=== PATIENT | male | born 1945 | race Caucasian/White ===

== ENCOUNTER → 2016-04-07 | Outpatient (CLI) | payer BC ==
[~2016-04-07] MED LIST: ALFU10TA30 PO; ASPEC81 PO; FINA5TAB4 PO; GLC500 PO; INSUINJ12 SC; OMEG10007 PO; REPA1TAB42 PO
[2016-04-07 13:24] LABS: ESTIMATED AVERAGE GLUCOSE 217 mg/dl; HA1C FLAG Normal (Normal)
== END | disposition home or self-care (01) ==
LOC: C.LAB1850 12:16
PROVIDERS: ATTEND Nurse Practitioner Family
DX: E11.65 Type 2 diabetes mellitus with hyperglycemia (principal)

== ENCOUNTER → 2016-05-11 | Outpatient (CLI) | payer BC ==
[2016-05-11 12:29] LABS: ALT/SGPT 27 U/L (12-78); BLOOD UREA NITROGEN 22 mg/dl (7-18); BUN/CREATININE RATIO 22.4 (10-20); CALCIUM 8.9 mg/dl (8.5-10.1); CARBON DIOXIDE 27 mmol/L (21-32); CHLORIDE 105 mmol/L (98-107); CHOLESTEROL 127 mg/dl (0-200); CREATININE 0.98 mg/dl (0.60-1.40); GLUCOSE 98 mg/dl (70-99); POTASSIUM 4.4 mmol/L (3.5-5.1); SODIUM 141 mmol/L (136-145)
[2016-05-11 12:38] LABS: ALKALINE PHOSPHATASE 68 U/L (45-117); AST/SGOT 19 U/L (15-37); CHOLESTEROL/HDL RATIO 2.1; HDL CHOLESTEROL 60 mg/dl; LDL CHOLESTEROL CALCULATED 48 mg/dl; THYROID STIMULATING HORMONE 0.297 uIu/ml (0.300-4.500); TRIGLYCERIDES 94 mg/dl (0-150); VERY LOW DENSITY LIPOPROT CALC 19 mg/dl
[2016-05-11 12:55] LABS: ESTIMATED AVERAGE GLUCOSE 189 mg/dl; HA1C FLAG Normal (Normal)
== END | disposition home or self-care (01) ==
LOC: C.LAB 11:37
PROVIDERS: ATTEND Internal Medicine
DX: E11.9 Type 2 diabetes mellitus without complications (principal); E78.5 Hyperlipidemia, unspecified; I25.10 Atherosclerotic heart disease of native coronary artery without angina pectoris; E05.90 Thyrotoxicosis, unspecified without thyrotoxic crisis or storm

== ENCOUNTER → 2016-07-06 | Outpatient (CLI) | payer BC ==
[~2016-07-06] MED LIST changes: +ALFU10TA2 PO; -ALFU10TA30 PO; +REPA1TAB26 PO; -REPA1TAB42 PO
[2016-07-06 13:06] LABS: ESTIMATED AVERAGE GLUCOSE 157 mg/dl; HA1C FLAG Normal (Normal)
== END | disposition home or self-care (01) ==
LOC: C.LAB1850 09:34
PROVIDERS: ATTEND Internal Medicine Endocrinology, Diabetes & Metabolism
DX: E11.65 Type 2 diabetes mellitus with hyperglycemia (principal)

== ENCOUNTER → 2016-11-19 | Outpatient (CLI) | payer BC ==
[~2016-11-19] MED LIST changes: -ALFU10TA2 PO; +ALFU10TA30 PO; -REPA1TAB26 PO; +REPA1TAB42 PO
[2016-11-19 12:04] LABS: ESTIMATED AVERAGE GLUCOSE 183 mg/dl; HA1C FLAG Normal (Normal)
--- NOTE | 2016-11-26 14:35 | CODING QUERY MEDICAL NECESSITY ---
SUPPORTING DIAGNOSIS NEEDED A supporting diagnosis is required for the test/procedure performed on this patient in order for us to be reimbursed by the patient's insurance. Please provide a supporting diagnosis for the following test/procedure listed below next to the test name along with your signature. *If there is no additional diagnosis for this patient that would support the following test/procedure please document that below next to the test/procedure. Test(s)/Procedure(s) that require a supporting diagnosis: * HEMOGLOBIN A1C DIAGNOSIS: Provider Signature: Date: Thank you Keri Schaeffer [employer] Once completed, please kindly fax back to [phone] For questions please call [phone]
== END | disposition home or self-care (01) ==
LOC: C.LAB1850 09:50
PROVIDERS: ATTEND Nurse Practitioner Family
DX: N40.0 Benign prostatic hyperplasia without lower urinary tract symptoms (principal); E78.5 Hyperlipidemia, unspecified; E11.9 Type 2 diabetes mellitus without complications

== ENCOUNTER → 2017-06-28 | Outpatient (CLI) | payer BC ==
[~2017-06-28] MED LIST changes: +ALFU10TA2 PO; -ALFU10TA30 PO; +REPA1TAB26 PO; -REPA1TAB42 PO
--- NOTE | 2017-06-28 11:50 | DIAGNOSTIC IMAGING REPORT ---
TWO VIEW CHEST CLINICAL HISTORY: COPD. FINDINGS: PA and lateral chest radiographs are compared to study dated 12/25/2013. The PA view is degraded by patient rotation. The patient is status post midline sternotomy and aortic valve surgery. The heart is enlarged and there is atherosclerotic calcification of the thoracic aorta. Chronic interstitial thickening is similar to previous. There is mild left basilar atelectasis. No airspace consolidation or pleural effusion is identified. There is no pneumothorax. The skeletal structures are osteopenic. The bony thorax appears intact. Postoperative change is noted in the right humeral head. Cholecystectomy clips are seen in the right upper quadrant. IMPRESSION: Cardiomegaly with no acute cardiopulmonary abnormality. Electronically signed by: Manny Cordon M.D. 06/28/2017 11:49 AM Dictated Date/Time: 06/28/2017 11:46 AM
== END | disposition home or self-care (01) ==
LOC: C.RADBC 11:20
PROVIDERS: ATTEND Family Medicine Adult Medicine
DX: I51.7 Cardiomegaly (principal); J44.9 Chronic obstructive pulmonary disease, unspecified

== ENCOUNTER 2017-08-19 11:11 | Inpatient (IN) | payer BC, OTHER ==
[~2017-08-19] VITALS: Ht 180.3 cm; Wt 130.5 kg
[2017-08-19] VITALS (14 sets, daily range): BP systolic 112–165; BP diastolic 56–85; PULSE 84–98; TEMP 36.6–36.9; O2SAT 91–98; Ht 180.3 cm; Wt 130.5 kg
[2017-08-19] MEDS ORDERED: SODIUM CHLORIDE 0.9% 1000ML 1,000 ML IV STA (11:51)
--- NOTE | 2017-08-19 12:27 | DIAGNOSTIC IMAGING REPORT ---
CHEST 2 VIEWS ROUTINE CLINICAL HISTORY: Respiratory distress COMPARISON STUDY: 06/28/2017 FINDINGS: There are postsurgical changes of a midline sternotomy and aortic valve replacement. The heart is borderline enlarged. There is no failure. There is no focal pulmonary consolidation. There are no pleural effusions.[There is slight deviation of the upper thoracic trachea to the left of midline. This is likely secondary to a thyroid goiter. IMPRESSION: No active disease in the chest. Electronically signed by: Efrain Esquivel M.D. 08/19/2017 12:25 PM Dictated Date/Time: 08/19/2017 12:24 PM
[2017-08-19 12:44] LABS: PTT PATIENT 22.6 SECONDS (21.0-31.0)
[2017-08-19 12:54] LABS: HEMATOCRIT 24.7 % (42-52); HEMOGLOBIN 6.9 g/dL (14.0-18.0); MEAN CELL VOLUME 75.1 fL (80-100); MEAN CORPUSCULAR HGB CONC 27.9 g/dl (32-36); MEAN PLATELET VOLUME 9.5 fL (7.4-10.4); PLATELET COUNT 238 K/uL (130-400); RED CELL DISTRIBUTION WIDTH CV 16.9 % (11.5-14.5); RED CELL DISTRIBUTION WIDTH SD 46.8 fL (36.4-46.3)
[2017-08-19 12:57] LABS: BASO % 0.1 %; BASO ABS # 0.01 K/uL (0-0.2); EOS % 2.3 %; EOS ABS # 0.19 K/uL (0-0.5); IG# 0.02 K/uL (0.00-0.02); LYMPH % 15.8 %; LYMPH ABS # 1.28 K/uL (1.2-3.4); MONO % 6.8 %; MONO ABS # 0.55 K/uL (0.11-0.59); NEUT % 74.8 %; NEUT ABS # 6.05 K/uL (1.4-6.5)
[2017-08-19 13:01] LABS: ALBUMIN 3.1 gm/dl (3.4-5.0); CALCIUM 8.2 mg/dl (8.5-10.1); CKMB 2.1 ng/ml (0.5-3.6); CREATININE 1.29 mg/dl (0.60-1.40); POTASSIUM 4.4 mmol/L (3.5-5.1)
--- NOTE | 2017-08-19 13:05 | EMERGENCY ROOM VISIT NOTE ---
ED Visit Note First contact with patient: 11:31 The patient was seen and examined with Anderson Whipple PA-C. I agree with the history, physical and findings. Please see the note for disposition and details.
[2017-08-19] MEDS ORDERED: ALUMINUM/MAGNESIUM/SIMETH (MAALOX MAX) 30 ML UDC PO PRN (14:00)
[2017-08-19] MEDS ORDERED: ZOLPIDEM TARTRATE 5 MG TAB PO PRN ×2 (14:00)
[2017-08-19] MEDS ORDERED: POLYETHYLENE (MIRALAX) 17 GM PACK PO PRN (14:00)
[2017-08-19] MEDS ORDERED: CARBOHYDRATES FOR HYPOGLYCEMIA PO PRN ×3 (14:00→17:45)
[2017-08-19] MEDS ORDERED: DEXTROSE 50% 50 ML SYR IV PRN ×3 (14:00→17:45)
[2017-08-19] MEDS ORDERED: GLUCOSE 40% GEL 15 GM TUBE PO PRN ×3 (14:00→17:45)
[2017-08-19] MEDS ORDERED: ACETAMINOPHEN 325 MG TAB PO PRN (14:00)
[2017-08-19] MEDS ORDERED: GLUCOSE 10 TABS/TUBE PO PRN ×3 (14:00→17:45)
[2017-08-19] MEDS ORDERED: ONDANSETRON INJ 2 MG/ML 2 ML VIAL IV PRN (14:00)
[2017-08-19] MEDS ORDERED: MAGNESIUM HYDROXIDE SUSP 30 ML UDC PO PRN (14:00)
[2017-08-19] MEDS ORDERED: GLUCAGON FOR INJ 1 MG VIAL SQ PRN ×3 (14:00→17:45)
[2017-08-19] MEDS ORDERED: OPTIRAY 320 IV PRN (14:30)
--- NOTE | 2017-08-19 14:33 | History and Physical ---
History & Physical Date & Time of Service: August 19, 2017 at 14:22 Chief Complaint: Low Blood Count Primary Care Physician: Daron Durham M.D. History of Present Illness Source: patient, family 72-year-old man with past medical history of diabetes mellitus type 2 insulin requiring, CAD status post CABG and aortic valve replacement with tissue valve in 2013, BPH and obesity. Patient has been complaining of significant shortness of breath for the last few months, progressively getting worse. Patient has no primary care physician in [place] so they drove 2 weeks ago from [place] to here. Patient said that his shortness of breath is mainly exertional and started after he sustained a fall in [place] a few months ago. Patient went to his primary care physician who did a blood work that showed his hemoglobin is 6. He was sent to the ER for further evaluation and management. Patient stated that he does not have any igor bleeding, blood in stool, hematuria. In the ED Hemoccult blood in stool test was done and was positive Denies any alcohol Admits to remote smoking, quit smoking 20 years ago Past Medical/Surgical History Medical Problems: (1) Acute blood loss anemia (2) Acute Pancreatitis (3) Aortic Valve Disorder (4) Cardiomegaly (5) Chronic Cholecystitis (6) Enlarged Prostate Without Lower Urinary Tract Symptoms (7) Heart Valve Replac Nec (8) History Of Tobacco Use (9) Hyperplasia of prostate (10) Hypertension Nos (11) Hypothyroidism Nos (12) Obesity, Nos (13) Pneumonia, Organism Nos Surgical Problems: (1) Aortocoronary Bypass (2) History of aortic valve replacement Social History Smoking Status: Former Smoker Immunizations History of Influenza Vaccine: N/A History of Tetanus Vaccine?: No History of Pneumococcal: No History of Hepatitis B Vaccine: No Allergies Coded Allergies: No Known Allergies (Verified , NKA, 01/22/15) Home Medications Scheduled Alfuzosin Hcl (Uroxatral), 10 MG PO QPM Aspirin Enteric Coated (Ecotrin Or Generic *), 81 MG PO QAM Finasteride (Proscar), 5 MG PO QPM Fish Oil ([place]-3), 1 CAP PO PM Insulin Detmir (Levemir), 25 UNITS SC BID Metformin Hcl (Glucophage *), 1,000 MG PO BID Repaglinide (Prandin), 1 MG PO AC Review of Systems Review of system Constitutional: No fever / no chills / no sweats /positive for generalized weakness and fatigue Eyes: no blurring of vision / no eye pain / no discharge / no redness ENT: no hearing loss / no epistaxis /no swallowing problems Respiratory: no cough / no wheezing /positive for exertional shortness of breath / no hemoptysis Cardiovascular: no Chest pain / no lower extremity edema / no palpitation Abdomen: no pain / no nausea / no vomiting / no constipation Musculoskeletal: no joint pain / no muscle pain / no joint swelling Genitourinary: no dysuria / no incontinence / no urinary retention Neurologic: no focal weakness / no numbness/tingling / no ataxia Psychiatric: no depression symptoms / no anxiety / no insomnia Endocrine: no excessive thirst / no excessive urination Hematologic: no abnormal bleeding / no bruising / no LN swelling Skin: No rash / no pallor Physical Exam Vital Signs Date Time Temp Pulse Resp B/P (MAP) Pulse Ox O2 Delivery O2 Flow Rate FiO2 08/19/17 13:26 93 19 94 08/19/17 13:21 91 20 95 08/19/17 13:16 91 20 94 08/19/17 13:11 92 22 95 08/19/17 13:06 91 20 94 Room Air 08/19/17 13:01 91 18 128/61 94 08/19/17 12:56 91 12 95 08/19/17 12:51 91 24 94 08/19/17 12:46 90 20 94 08/19/17 12:45 149/70 08/19/17 12:45 93 08/19/17 12:20 84 20 98 Room Air 08/19/17 12:02 96 Room Air 08/19/17 11:12 36.7 103 24 119/62 96 Room Air Physical examination General patient appears to be comfortable, not in acute distress HEENT: Atraumatic , normocephalic /no jaundice /no pallor /anicteric /no dry mucous membrane /normal external ear inspection Neck: Supple /no swelling /central trach Heart: S1/S2 normal/regular rate and rhythm/no gallop /no rub /no murmur Lungs: Clear to auscultation bilaterally/normal chest with expansion/no rhonchi/ no rales/no wheezing/no use of accessory muscles of respiration Abdomen: Soft/nontender/no guarding/no rebound/no organomegaly/no pulsatile mass Musculoskeletal: No swelling/no edema/no tenderness/normal range of motion Neuro exam: Awake alert oriented 3/cranial nerves II through XII appear to be intact/sensation intact/moves all extremities/no abnormal movements Psychiatric evaluation: No depressed mood/normal affect Skin: No rash on exposed skin area/no erythema Extremity: Normal pulse/no pitting edema/no clubbing or cyanosis Endocrine/lymphatic: No obvious lymphadenopathy /no lymphedema Diagnostics Laboratory Results Results Past 24 Hours Test 08/19/17 12:12 Range/Units White Blood Count 8.10 4.8-10.8 K/uL Red Blood Count 3.29 4.7-6.1 M/uL Hemoglobin 6.9 14.0-18.0 g/dL Hematocrit 24.7 42-52 % Mean Corpuscular Volume 75.1 80-100 fL Mean Corpuscular Hemoglobin 21.0 25-34 pg Mean Corpuscular Hemoglobin Concent 27.9 32-36 g/dl Platelet Count 238 130-400 K/uL Mean Platelet Volume 9.5 7.4-10.4 fL Neutrophils (%) (Auto) 74.8 % Lymphocytes (%) (Auto) 15.8 % Monocytes (%) (Auto) 6.8 % Eosinophils (%) (Auto) 2.3 % Basophils (%) (Auto) 0.1 % Neutrophils # (Auto) 6.05 1.4-6.5 K/uL Lymphocytes # (Auto) 1.28 1.2-3.4 K/uL Monocytes # (Auto) 0.55 0.11-0.59 K/uL Eosinophils # (Auto) 0.19 0-0.5 K/uL Basophils # (Auto) 0.01 0-0.2 K/uL RDW Standard Deviation 46.8 36.4-46.3 fL RDW Coefficient of Variation 16.9 11.5-14.5 % Immature Granulocyte % (Auto) 0.2 % Immature Granulocyte # (Auto) 0.02 0.00-0.02 K/uL Hypochromasia PRESENT Poikilocytosis PRESENT Microcytosis PRESENT Prothrombin Time 10.0 9.0-12.0 SECONDS Prothromb Time International Ratio 1.0 0.9-1.1 Activated Partial Thromboplast Time 22.6 21.0-31.0 SECONDS Partial Thromboplastin Ratio 0.9 D-Dimer 1230 0-500 ug/L FEU Sodium Level 136 136-145 mmol/L Potassium Level 4.4 3.5-5.1 mmol/L Chloride Level 103 98-107 mmol/L Carbon Dioxide Level 29 21-32 mmol/L Anion Gap 5.0 3-11 mmol/L Blood Urea Nitrogen 21 7-18 mg/dl Creatinine 1.29 0.60-1.40 mg/dl Est Creatinine Clear Calc Drug Dose 69.4 ml/min Estimated GFR () 62.9 Estimated GFR (Non- 54.3 BUN/Creatinine Ratio 16.4 10-20 Random Glucose 272 70-99 mg/dl Calcium Level 8.2 8.5-10.1 mg/dl Total Bilirubin 0.4 0.2-1 mg/dl Aspartate Amino Transf (AST/SGOT) 16 15-37 U/L Alanine Aminotransferase (ALT/SGPT) 24 12-78 U/L Alkaline Phosphatase 98 45-117 U/L Total Creatine Kinase 180 39-308 U/L Creatine Kinase MB 2.1 0.5-3.6 ng/ml Creatine Kinase MB Ratio 1.2 0-3.0 Troponin I 0.119 0-0.045 ng/ml Total Protein 7.0 6.4-8.2 gm/dl Albumin 3.1 3.4-5.0 gm/dl Globulin 3.9 2.5-4.0 gm/dl Albumin/Globulin Ratio 0.8 0.9-2 Diagnostic Radiology CHEST 2 VIEWS ROUTINE CLINICAL HISTORY: Respiratory distress COMPARISON STUDY: 06/28/2017 FINDINGS: There are postsurgical changes of a midline sternotomy and aortic valve replacement. The heart is borderline enlarged. There is no failure. There is no focal pulmonary consolidation. There are no pleural effusions.[There is slight deviation of the upper thoracic trachea to the left of midline. This is likely secondary to a thyroid goiter. IMPRESSION: No active disease in the chest. Electronically signed by: Efrain Esquivel M.D. 08/19/2017 12:25 PM Dictated Date/Time: 08/19/2017 12:24 PM The status Impression Assessment and Plan 72-year-old man with past medical history of CAD status post CABG, aortic valve disease status post tissue valve replacement in 2013, diabetes mellitus insulin requiring, morbid obesity and BPH. Presented to the hospital with exertional shortness of breath secondary to severe anemia. Assessment/plan Exertional shortness of breath Likely secondary to acute on chronic anemia plus mild COPD exacerbation Due to recent travel from [place] and the positive d-dimer, will order CT angiogram and lower extremity ultrasound to rule out any PE or DVT History of CABG/aortic valve replacement Currently will hold aspirin due to severe anemia Severe anemia, likely acute on chronic Positive occult blood in stool, Ordered 2 units blood transfusion Ordered rest of anemia study, including B12, folate levels Ordered iron study Consulted GI for initial workup, colonoscopy and upper EGD can be done as an outpatient Very mild/subtle COPD exacerbation DuoNeb as needed Hold off steroids at this point, my sense he will improve after the blood transfusion and the bronchodilators Can follow-up with electrical electronics technician as an outpatient Positive troponin, with EKG changes Likely demand ischemia, will trend troponin If continues to rise patient will need cardiology evaluation Troponin level improves, patient can follow-up with meat stringer as an outpatient Continue home meds as appropriate except aspirin Diabetes mellitus type 2 Continue insulin dose that patient takes at home Sliding scale insulin SCD boots for DVT prophylaxis Resuscitation Status VTE Prophylaxis Will order VTE Prophylaxis: Yes
[2017-08-19] MEDS ORDERED: ASPI81TA28 PO (14:39)
[2017-08-19] MEDS ORDERED: NVLGI/PEN SQ ×3 (14:39)
[2017-08-19] MEDS ORDERED: ATOR-26 PO (14:39)
[2017-08-19] MEDS ORDERED: NVLGIPEN SQ (14:39)
[2017-08-19] MEDS ORDERED: METF500T5 PO (14:39)
[2017-08-19] MEDS ORDERED: INSU1.2I SQ (14:39)
[2017-08-19] MEDS ORDERED: PRS5 PO (14:39)
[2017-08-19 15:29] LABS: RETIC COUNT % 2.3 % (0.5-2.0)
[2017-08-19] MEDS ORDERED: SODIUM CHLORIDE 0.9% 1000ML 1,000 ML IV SCH (15:30)
[2017-08-19] MEDS: ALBUT/IPRATROP 3MG/0.5MG NEB 3 ML VIAL INH SCH ×2 (15:55→19:08)
--- NOTE | 2017-08-19 16:30 | DIAGNOSTIC IMAGING REPORT ---
BILATERAL LOWER EXTREMITY VENOUS DOPPLER CLINICAL HISTORY: Shortness of breath. Foot pain. COMPARISON STUDY: No previous studies for comparison. TECHNIQUE: Sonography of the deep venous system of the bilateral lower extremities was performed. Compression and augmentation were evaluated. FINDINGS: The bilateral common femoral, superficial femoral and popliteal veins were compressible. Augmentation was normal. Flow was shown within the deep calf vessels. IMPRESSION: No evidence of deep venous thrombus within the bilateral lower extremities. Electronically signed by: Barry Watkins M.D. 08/19/2017 4:28 PM Dictated Date/Time: 08/19/2017 4:28 PM
--- NOTE | 2017-08-19 16:41 | EMERGENCY ROOM VISIT NOTE ---
History First contact with patient: 11:31 Chief Complaint: OTHER COMPLAINT Stated Complaint: LOW BLOOD COUNT History of Present Illness The patient is a 72 year old male who presents to the Emergency Room at the request of his PCP for a low blood count. The patient reports that he had labs ordered this morning. He received a phone call from Dr. Durham's office to come to the emergency department for further workup. The patient denies any recent symptoms including weakness, palpitations, chest pain, nausea, headache or urinary symptoms. The patient reports that he has had some shortness of breath since April as well. Patient has a history of aortic valve replacement in August 2013 at [facility]. The patient also reports that he had a loose stool this morning. He did not notice any blood in his stool recently, and denies any melena. The patient denies any prior history of anemia, and denies any current pain. The patient is not on any blood thinners. Review of Systems HEENT: Denies dizziness, visual problems, hearing loss, tinnitus. Denies difficulty swallowing or oral lesions. PULMONARY: Denies cough, sputum production or hemoptysis. CARDIOVASCULAR: Denies chest pain, palpitations, dyspnea on exertion, orthopnea or peripheral edema. GASTROINTESTINAL: Denies chronic diarrhea, constipation, nausea, vomiting, or abdominal pain. GENITOURINARY: Denies dysuria, frequency, urgency or nocturia. NEUROLOGIC: Denies history of epilepsy, CVA, TIA or chronic headaches. MUSCULOSKELETAL: Denies history of joint tenderness/swelling. SKIN: Denies rashes or lesions. PSYCHIATRIC: Denies history of depression or mental illness. ENDOCRINE: History of diabetes. Denies thyroid disorders. Past Medical/Surgical History Medical Problems: (1) Acute blood loss anemia (2) Acute Pancreatitis (3) Aortic Valve Disorder (4) Cardiomegaly (5) Chronic Cholecystitis (6) Enlarged Prostate Without Lower Urinary Tract Symptoms (7) Heart Valve Replac Nec (8) History Of Tobacco Use (9) Hyperplasia of prostate (10) Hypertension Nos (11) Hypothyroidism Nos (12) Obesity, Nos (13) Pneumonia, Organism Nos Surgical Problems: (1) Aortocoronary Bypass (2) History of aortic valve replacement Social History Smoking Status: Former Smoker Alcohol Use: none Marital Status: Occupation Status: retired Current/Historical Medications Scheduled Alfuzosin Hcl (Uroxatral), 10 MG PO QPM Aspirin (Aspirin Ec), 81 MG PO DAILY Atorvastatin (Lipitor), 80 MG PO DAILY Finasteride (Finasteride), 5 MG PO DAILY Fish Oil ([place]-3), 1 CAP PO PM Insulin Aspart (Novolog Flexpen), 15 UNITS SQ QDB Insulin Aspart (Novolog Flexpen), 15 UNITS SQ QDL Insulin Aspart (Novolog Flexpen), 25 UNITS SQ QDD Insulin Glargine ([place]jeo Solostar), 80 UNITS SQ HS Metformin Hcl Er (Glucophage Er), 1,000 MG PO BID Repaglinide (Prandin), 1 MG PO AC Scheduled PRN Insulin Aspart (Novolog Flexpen), 5 UNITS SQ WITH SNACKS PRN for WITH SNACKS Physical Exam Vital Signs Date Time Temp Pulse Resp B/P (MAP) Pulse Ox O2 Delivery O2 Flow Rate FiO2 08/19/17 13:26 93 19 94 08/19/17 13:21 91 20 95 08/19/17 13:16 91 20 94 08/19/17 13:11 92 22 95 08/19/17 13:06 91 20 94 Room Air 08/19/17 13:01 91 18 128/61 94 08/19/17 12:56 91 12 95 08/19/17 12:51 91 24 94 08/19/17 12:46 90 20 94 08/19/17 12:45 149/70 08/19/17 12:45 93 08/19/17 12:20 84 20 98 Room Air 08/19/17 12:02 96 Room Air 08/19/17 11:12 36.7 103 24 119/62 96 Room Air Physical Exam CONSTITUTIONAL: Obese male, alert and oriented X 3 with positive affect. Patient does not appear in any acute distress. HEENT: Normocephalic, atraumatic. Pupils equal, round and reactive. Ears and nares are clear. Conjunctivae are pale. OROPHARYNX: No tonsillar hypertrophy or posterior pharyngeal erythema. NECK: Full active range of motion without discomfort. No JVD or carotid bruits. RESPIRATORY: Clear to auscultation bilaterally with no wheezing, crackles, rhonchi or stridor. CARDIOVASCULAR: Regular rate and rhythm with no rubs or gallops. A grade 2 out of 6 systolic ejection murmur is best heard at the left upper sternal border. GASTROINTESTINAL: Bowel sounds present in all quadrants. Abdomen is protuberant but soft and nontender to palpation. MUSCULOSKELETAL: Full range of motion of all joints without discomfort. INTEGUMENTARY: No rash or other significant dermatologic conditions noted. HEMATOLOGIC: No ecchymosis or petechiae noted. NEUROLOGIC: No focal neurologic deficits noted. Medical Decision & Procedures ER Provider Diagnostic Interpretation: My interpretation of an ECG shows a sinus rhythm of [address] depression in inferior leads. No ST elevation noted. ECG was reviewed with Dr. Dixon, ED attending physician. My interpretation of a two-view chest x-ray does not show any consolidations, pneumothorax or cardiomegaly. Radiologist report is as follows: CHEST 2 VIEWS ROUTINE CLINICAL HISTORY: Respiratory distress COMPARISON STUDY: 06/28/2017 FINDINGS: There are postsurgical changes of a midline sternotomy and aortic valve replacement. The heart is borderline enlarged. There is no failure. There is no focal pulmonary consolidation. There are no pleural effusions.[There is slight deviation of the upper thoracic trachea to the left of midline. This is likely secondary to a thyroid goiter. IMPRESSION: No active disease in the chest. Laboratory Results 08/19/17 12:12 Red Blood Count 3.29, Mean Corpuscular Volume 75.1, Mean Corpuscular Hemoglobin 21.0, Mean Corpuscular Hemoglobin Concent 27.9, Mean Platelet Volume 9.5, Neutrophils (%) (Auto) 74.8, Lymphocytes (%) (Auto) 15.8, Monocytes (%) (Auto) 6.8, Eosinophils (%) (Auto) 2.3, Basophils (%) (Auto) 0.1, Neutrophils # (Auto) 6.05, Lymphocytes # (Auto) 1.28, Monocytes # (Auto) 0.55, Eosinophils # (Auto) 0.19, Basophils # (Auto) 0.01 08/19/17 12:12 Test 08/19/17 12:12 White Blood Count 8.10 K/uL (4.8-10.8) Red Blood Count 3.29 M/uL (4.7-6.1) Hemoglobin 6.9 g/dL (14.0-18.0) Hematocrit 24.7 % (42-52) Mean Corpuscular Volume 75.1 fL (80-100) Mean Corpuscular Hemoglobin 21.0 pg (25-34) Mean Corpuscular Hemoglobin Concent 27.9 g/dl (32-36) Platelet Count 238 K/uL (130-400) Mean Platelet Volume 9.5 fL (7.4-10.4) Neutrophils (%) (Auto) 74.8 % Lymphocytes (%) (Auto) 15.8 % Monocytes (%) (Auto) 6.8 % Eosinophils (%) (Auto) 2.3 % Basophils (%) (Auto) 0.1 % Neutrophils # (Auto) 6.05 K/uL (1.4-6.5) Lymphocytes # (Auto) 1.28 K/uL (1.2-3.4) Monocytes # (Auto) 0.55 K/uL (0.11-0.59) Eosinophils # (Auto) 0.19 K/uL (0-0.5) Basophils # (Auto) 0.01 K/uL (0-0.2) RDW Standard Deviation 46.8 fL (36.4-46.3) RDW Coefficient of Variation 16.9 % (11.5-14.5) Immature Granulocyte % (Auto) 0.2 % Immature Granulocyte # (Auto) 0.02 K/uL (0.00-0.02) Hypochromasia PRESENT Poikilocytosis PRESENT Microcytosis PRESENT Absolute Reticulocyte Count 0.08 10^6/uL (0.02-0.10) Percent Reticulocyte Count 2.3 % (0.5-2.0) Prothrombin Time 10.0 SECONDS (9.0-12.0) Prothromb Time International Ratio 1.0 (0.9-1.1) Activated Partial Thromboplast Time 22.6 SECONDS (21.0-31.0) Partial Thromboplastin Ratio 0.9 D-Dimer 1230 ug/L FEU (0-500) Anion Gap 5.0 mmol/L (3-11) Est Creatinine Clear Calc Drug Dose 69.4 ml/min Estimated GFR () 62.9 Estimated GFR (Non- 54.3 BUN/Creatinine Ratio 16.4 (10-20) Calcium Level 8.2 mg/dl (8.5-10.1) Total Bilirubin 0.4 mg/dl (0.2-1) Aspartate Amino Transf (AST/SGOT) 16 U/L (15-37) Alanine Aminotransferase (ALT/SGPT) 24 U/L (12-78) Alkaline Phosphatase 98 U/L (45-117) Total Creatine Kinase 180 U/L (39-308) Creatine Kinase MB 2.1 ng/ml (0.5-3.6) Creatine Kinase MB Ratio 1.2 (0-3.0) Troponin I 0.119 ng/ml (0-0.045) Total Protein 7.0 gm/dl (6.4-8.2) Albumin 3.1 gm/dl (3.4-5.0) Globulin 3.9 gm/dl (2.5-4.0) Albumin/Globulin Ratio 0.8 (0.9-2) The above labs were reviewed, confirming lab results from earlier. Patient also has of elevated troponin of 0.119. Medications Administered Medications (Trade) Dose Ordered Sig/Perfecto Route Start Time Stop Time Status Last Admin Dose Admin Sodium Chloride 1,000 ml @ 999 mls/hr Q1H1M STAT IV 08/19/17 11:51 08/19/17 12:51 DC 08/19/17 12:41 999 MLS/HR ED Course Patient history and physical exam were performed. Nurse's notes were reviewed. Vital signs were reviewed. Patient is mildly tachycardic at 103 bpm. O2 saturation is 96% on room air, and the patient he is normotensive and afebrile. I did review laboratory results from this morning, showing a hemoglobin of 6.8 and hematocrit of 23.7. D-dimer is elevated at 1320. Creatinine is normal 1.09. BNP is also normal. I did discuss my concern for the patient's current hemoglobin level. I did suggest that we repeat labs to make certain that the lab results are indeed correct. IV access was established, and labs were drawn. An ECG shows depressed ST segments in limb leads. A two-view chest x-ray was normal. Stool Hemoccult was positive. Review of repeat labs confirms a hemoglobin of 6.9. D- dimer is still elevated. Type and cross for 2 units of packed red blood cells was ordered. He is also noted that the patient's troponin is elevated. Patient was also examined by Dr. Dixon, ED attending physician, who agrees with workup and plan of care. The case was further discussed with the [facility] physicians group hospitalist service. They will order for the blood transfusions and probable chest CTA. Please see the dictation for further treatment and final disposition. Medical Decision Patient presents to the emergency department for evaluation of a low hemoglobin level on lab this morning. Labs were confirmed today. The patient does have a positive Hemoccult test, suggestive of GI bleed. Patient also has an elevated troponin, and will need further cardiac rule out. Creatinine is normal and not suggestive of renal injury. Medication Reconcilliation Current Medication List: was personally reviewed by me Blood Pressure Screening Patient's blood pressure: Normal blood pressure Impression Primary Impression: Acute blood loss anemia Additional Impressions: Elevated troponin History of aortic valve replacement Departure Information Referrals Daron Durham M.D. (PCP) Patient Instructions My [facility] Problem Qualifiers
--- NOTE | 2017-08-19 16:59 | GASTROINTESTINAL CONSULTATION ---
DATE OF CONSULTATION: 08/19/2017 ATTENDING PHYSICIAN: Dr. العراقي CONSULTING PHYSICIAN: Booker Haley DO REASON FOR CONSULTATION: Anemia with Heme-positive stool. HISTORY OF PRESENT ILLNESS: Nathaniel Mayo is a 72-year-old male who presented to the Department of Emergency Medicine as he was advised by his PCP to present after outpatient laboratory testing found him to be anemic with an H and H in the range of 7 and 24. He had been having some outpatient symptoms including shortness of breath and exertional dyspnea. He did present to the ER and was noted to have an H and H of 6.9 and 24.7. His MCV was 75.1, white blood cell count of 8.1. PT and INR were normal. His D-dimer was elevated at 1230. He did have a BUN of 21, creatinine of 1.29 and a troponin of 0.119. His liver panel was unremarkable. He had a chest x-ray on admission as well which showed no active disease in the chest. The time that I saw the patient, he denied any abdominal pain. He states that he has had no abdominal symptoms including nausea, vomiting, hematemesis, melena, hematochezia. He states that he occasionally takes naproxen, but not regularly. He states that his last colonoscopy was performed 3 years ago here at [facility] by myself and at that time he was noted to have multiple polyps in the colon as well as sigmoid diverticulosis and some nonbleeding internal hemorrhoids. Pathology from the polyps revealed a tubular adenoma in the sigmoid colon and ascending colon and hyperplastic polyps in the rectum. All of the polyps were less than 1 cm in size and he was recommended to return for repeat colonoscopy in 5 years. He states he has no reflux symptoms nor does he have any dysphagia or odynophagia. He has no further complaints. He was undergoing lower extremity Doppler testing when I saw him secondary to his shortness of breath and elevated D-dimer. He denies any further complaints. PAST MEDICAL HISTORY: Significant for type 2 diabetes, coronary artery disease status post CABG, history of aortic valve replacement, BPH, obesity, history of acute pancreatitis, hypertension, history of pneumonia. PAST SURGICAL HISTORY: Includes coronary artery bypass grafting as well as aortic valve replacement with a tissue valve. ALLERGIES: None. MEDICATIONS AT PRESENT: Include Uroxatral 10 mg p.o. q.p.m., Proscar 5 mg p.o. q.p.m., insulin detemir 25 units subQ b.i.d., Protonix 40 mg IV b.i.d., acetylcysteine 600 mg p.o. b.i.d., Tylenol 650 mg p.o. q. 4 p.r.n. pain or fever, Ambien 5 mg p.o. at bedtime p.r.n. insomnia, Zofran 4 mg IV q. 6 p.r.n. nausea, MiraLax 17 grams p.o. daily p.r.n. constipation. SOCIAL HISTORY: He is . He is a former smoker. No current tobacco use, occasional alcohol, no illicit drug use. FAMILY HISTORY: Negative for GI malignancy or inflammatory bowel disease. REVIEW OF SYSTEMS: Negative x10 system review other than pertinent positives listed in the HPI. PHYSICAL EXAMINATION: VITAL SIGNS: Include a temp of 36.7, pulse 91, respirations 20, blood pressure 118/56, pulse ox 94% on room air. GENERAL: He is awake, cooperative, obese. No acute distress. HEAD: Normocephalic, atraumatic. EYES: Pupils equal, round. Extraocular muscles are intact. ENT: External evaluation of ears and nose are normal. Oropharynx is clear. NECK: Soft, supple. No JVD or lymphadenopathy. CHEST: Clear to auscultation bilaterally. CARDIOVASCULAR SYSTEM: Regular rate and rhythm. ABDOMEN: Soft, nontender, nondistended. Positive bowel sounds. There is no appreciable hepatosplenomegaly or stigmata of chronic liver disease. EXTREMITIES: No clubbing, cyanosis, or edema. SKIN: Soft, noted pallor. LABORATORY STUDIES AND RADIOGRAPHIC STUDIES: Reviewed in the HPI. IMPRESSION: A 72-year-old male with symptomatic anemia as an outpatient and Heme-positive stools in the Emergency Room with no overt gastrointestinal blood loss. PLAN: At the present time, the patient is undergoing testing for lower extremity DVT and rule out PE if he in fact does have a DVT. Therefore, he may require anticoagulation. If this is the case, consideration could be given to performing an EGD and colonoscopy in the next day or so to aid with choice of anticoagulant therapy moving forward. If the patient does not have any lower extremity DVTs or PE, I would recommend that the patient undergo a workup either later during this hospitalization or as an outpatient. I would recommend transfusing him to maintain his H and H around 8 and 24. He is currently on Protonix therapy 40 mg IV b.i.d. and I certainly think this is reasonable. I would also recommend continuing supportive care. Dr. Chiu from [facility] will be cross covering our service over the weekend and any questions should be directed to him in regards to his GI care. Once again, thanks for allowing me to participate in the care of this patient. If you have any further questions, please do not hesitate in contacting me. SABINA
[2017-08-19] MEDS ORDERED: INSULIN DETEMIR FLEXPEN/FLEX TOUCH 100 UNITS/ML 3ML SC SCH (21:00)
[2017-08-19] MEDS ORDERED: INSULIN HUMAN REGULAR SC SCH (21:00)
[2017-08-19] MEDS ORDERED: ALFUZosin TAB 10 MG TAB PO SCH (21:00)
[2017-08-19] MEDS ORDERED: FINASTERIDE 5 MG TAB PO SCH (21:00)
[2017-08-19] MEDS: ACETYLCYSTEINE 600 MG CAP PO SCH (21:30)
[2017-08-19] MEDS: PANTOprazole INJ 40 MG in SYRINGE 0 ML IV SCH (21:30)
--- NOTE | 2017-08-19 21:33 | DIAGNOSTIC IMAGING REPORT ---
CT ANGIOGRAPHY OF THE CHEST, PULMONARY EMBOLUS PROTOCOL CLINICAL HISTORY: Shortness of breath. Low blood count. COMPARISON STUDY: Chest radiographs June 28, 2017 and August 19, 2017. TECHNIQUE: Following IV administration of 116 mL of Optiray-320, helical axial images of the chest were obtained utilizing the pulmonary embolus protocol. Maximal intensity projections and sagittal and coronal reformats were viewed on an independent 3D workstation. IV contrast was administered without complication. A dose lowering technique was utilized adhering to the principles of ALARA. CT DOSE: 805.96 mGy.cm FINDINGS: Multinodular thyroid gland is noted. No enlarged axillary, mediastinal or hilar lymph nodes are present. There is suspected right-sided gynecomastia. The heart is moderately enlarged. There are median sternotomy wires. A prosthetic aortic valve is noted. There is no thoracic aortic dissection. There is no pericardial effusion. No pneumothorax or pleural effusion is noted. There are mild groundglass opacities with mosaic attenuation within the lungs. No pulmonary emboli are identified. Exam is mildly compromised by motion artifact. Subpleural left lower lobe opacity reflects atelectasis. Bony thorax is unremarkable with exception of multiple old lateral rib fractures. Gallbladder is surgically absent. IMPRESSION: 1. No pulmonary emboli identified. 2. Moderate cardiomegaly. 3. Mild groundglass opacities with mosaic attenuation within the lungs. The findings are nonspecific and may reflect air trapping, mild edema or less likely an infectious process. No consolidation. Electronically signed by: Barry Watkins M.D. 08/19/2017 9:32 PM Dictated Date/Time: 08/19/2017 9:26 PM
[2017-08-19] MEDS: INSULIN ASPART 100 UNITS/ML 3 ML PEN SC SCH (21:36)
[2017-08-20] VITALS (8 sets, daily range): BP systolic 106–138; BP diastolic 55–77; PULSE 85–98; TEMP 36.8–37; O2SAT 90–95
[2017-08-20] MEDS: ALBUT/IPRATROP 3MG/0.5MG NEB 3 ML VIAL INH SCH ×2 (06:50→11:16)
[2017-08-20] MEDS: INSULIN ASPART 100 UNITS/ML 3 ML PEN SC SCH ×2 (07:39→11:43)
[2017-08-20] MEDS: ACETYLCYSTEINE 600 MG CAP PO SCH (07:40)
[2017-08-20] MEDS: PANTOprazole INJ 40 MG in SYRINGE 0 ML IV SCH (07:40)
[2017-08-20] MEDS ORDERED: INSULIN GLARGINE SOLOSTAR 100 UNITS/ML 3 ML PEN SC SCH (09:00)
[2017-08-20 09:08] LABS: CALCIUM 8.4 mg/dl (8.5-10.1); CREATININE 1.13 mg/dl (0.60-1.40); POTASSIUM 4.3 mmol/L (3.5-5.1)
[2017-08-20 09:36] LABS: HEMATOCRIT 28.8 % (42-52); HEMOGLOBIN 8.6 g/dL (14.0-18.0); MEAN CELL VOLUME 75.8 fL (80-100); MEAN CORPUSCULAR HEMOGLOBIN 22.6 pg (25-34); MEAN CORPUSCULAR HGB CONC 29.9 g/dl (32-36); MEAN PLATELET VOLUME 9.2 fL (7.4-10.4); PLATELET COUNT 247 K/uL (130-400); RED CELL DISTRIBUTION WIDTH CV 17.6 % (11.5-14.5); WHITE BLOOD COUNT 9.65 K/uL (4.8-10.8)
[2017-08-20 09:41] LABS: BASO % 0.2 %; BASO ABS # 0.02 K/uL (0-0.2); EOS % 2.6 %; EOS ABS # 0.25 K/uL (0-0.5); IG# 0.03 K/uL (0.00-0.02); LYMPH % 20.6 %; LYMPH ABS # 1.99 K/uL (1.2-3.4); MONO % 9.7 %; MONO ABS # 0.94 K/uL (0.11-0.59); NEUT % 66.6 %; NEUT ABS # 6.42 K/uL (1.4-6.5)
[2017-08-20] MEDS ORDERED: NURSING VERBAL MED ORDER ONE (10:45)
--- NOTE | 2017-08-20 11:35 | Gastroenterology Progress Note ---
Progress Note Date of Service: August 20, 2017 Subjective Pt evaluation today including: conversation w/ patient, conversation w/ family No complaints, received 2 units of blood yesterday, he is walking the halls without symptoms. He has had no signs of bleeding. Review of Systems Constitutional: No see HPI, No fever, No chills, No sweats, No weight loss, No weakness, No fatigue, No problem reported Eyes: No see HPI, No worsening of vision, No eye pain, No redness, No discharge , No diplopia, No problem reported ENT: No see HPI, No hearing loss, No unusual epistaxis, No nasal symptoms, No sore throat, No tinnitus, No dental problems, No trouble swallowing, No pain on swallowing, No problem reported Respiratory: No see HPI, No cough, No sputum, No wheezing, No shortness of breath, No dyspnea on exertion, No dyspnea at rest, No hemoptysis, No problem reported Cardiac: No see HPI, No chest pain, No orthopnea, No PND, No edema, No claudication, No palpitations, No problem reported Abdomen: No see HPI, No pain, No nausea, No vomiting, No diarrhea, No constipation, No GI bleeding, No dysphagia, No odynophagia, No acolic stools, No jaundice, No dark urine, No problem reported Musculoskeletal: No see HPI, No joint pain, No muscle pain, No swelling, No calf pain, No problem reported Medications Current Inpatient Medications Medications (Trade) Dose Ordered Sig/Perfecto Route Start Time Stop Time Status Last Admin Dose Admin Alfuzosin HCl (Uroxatral Tab) 10 mg QPM PO 08/19/17 21:00 09/18/17 20:59 08/19/17 21:30 10 MG Finasteride (Proscar Tab) 5 mg QPM PO 08/19/17 21:00 09/18/17 20:59 08/19/17 21:30 5 MG Acetaminophen (Tylenol Tab) 650 mg Q4H PRN PO 08/19/17 14:00 09/18/17 13:59 Al Hydrox/Mg Hydrox/Simethicone (Maalox Max Susp) 15 ml Q4H PRN PO 08/19/17 14:00 09/18/17 13:59 Magnesium Hydroxide (Milk Of Magnesia Susp) 30 ml Q12H PRN PO 08/19/17 14:00 09/18/17 13:59 Zolpidem Tartrate (Ambien Tab) 5 mg HSZ PRN PO 08/19/17 14:00 09/18/17 13:59 Zolpidem Tartrate (Ambien Tab) 5 mg HSZ PRN PO 08/19/17 14:00 09/18/17 13:59 Ondansetron HCl (Zofran Inj) 4 mg Q6H PRN IV 08/19/17 14:00 09/18/17 13:59 Polyethylene (Miralax Powder Packet) 17 gm DAILY PRN PO 08/19/17 14:00 09/18/17 13:59 Glucose (Glucose 40% Gel) 15-30 GRAMS 15 GRAMS... UD PRN PO 08/19/17 14:00 09/18/17 13:59 Glucose (Glucose Chew Tab) 4-8 Tablets 4 Tabl... UD PRN PO 08/19/17 14:00 09/18/17 13:59 Dextrose (Dextrose 50% 50ML Syringe) 25-50ML 25ML FOR ... UD PRN IV 08/19/17 14:00 09/18/17 13:59 Glucagon (Glucagon Inj) 1 mg UD PRN SQ 08/19/17 14:00 09/18/17 13:59 Carbohydrates (Carbohydrates For Hypoglycemia) 15-30 GRAMS 15 grams if BSG 54-69... UD PRN PO 08/19/17 14:00 09/18/17 13:59 Albuterol/ Ipratropium (Duoneb) 3 ml QIDR INH 08/19/17 16:00 09/18/17 15:59 08/20/17 11:16 3 ML Pantoprazole Sodium 40 mg/ Syringe 10 ml @ 5 mls/min BID@0900,2100 IV 08/19/17 21:00 09/18/17 20:59 08/20/17 07:40 5 MLS/MIN Acetylcysteine (Acetylcysteine Cap) 600 mg BID PO 08/19/17 21:00 08/21/17 20:59 08/19/17 21:30 600 MG Ioversol (Optiray 320) 100 ml UD PRN IV 08/19/17 14:30 08/23/17 14:29 Insulin Aspart (novoLOG ASPART) SLIDING SCALE If C... ACHS SC 08/19/17 21:00 09/18/17 20:59 08/20/17 07:39 4 UNITS Insulin Glargine (Lantus Solostar Pen) 80 units DAILY SC 08/20/17 09:00 09/19/17 08:59 08/20/17 07:40 80 UNITS Objective Vital Signs Date Time Temp Pulse Resp B/P (MAP) Pulse Ox O2 Delivery O2 Flow Rate FiO2 08/20/17 11:16 89 16 90 Room Air 08/20/17 08:00 Room Air 08/20/17 07:05 36.8 89 20 106/55 (72) 93 Room Air 08/20/17 06:51 88 16 93 Room Air 08/20/17 04:00 Room Air 08/20/17 03:48 37.0 85 22 116/61 (79) 93 Room Air 08/19/17 23:59 Room Air 08/19/17 23:43 36.8 92 22 112/63 (79) 95 Room Air 08/19/17 22:35 36.9 89 18 122/57 94 08/19/17 21:37 36.9 89 18 152/85 95 08/19/17 20:36 36.6 93 20 126/66 93 08/19/17 20:00 Room Air 08/19/17 20:00 36.8 88 18 133/68 (89) 94 Room Air 08/19/17 20:00 36.8 88 18 133/68 94 08/19/17 19:41 36.9 87 18 165/69 95 08/19/17 19:10 90 16 95 Room Air 08/19/17 17:45 36.7 94 20 157/75 97 08/19/17 17:30 36.7 84 20 154/71 95 08/19/17 17:15 36.9 92 20 147/77 91 08/19/17 17:00 36.9 89 20 134/61 95 08/19/17 16:45 36.6 92 20 147/74 97 08/19/17 16:00 94 Room Air 08/19/17 16:00 36.6 98 151/73 (99) 98 08/19/17 14:56 36.7 91 20 118/56 94 Room Air 08/19/17 14:32 36.7 93 19 128/61 94 08/19/17 13:26 93 19 94 08/19/17 13:21 91 20 95 08/19/17 13:16 91 20 94 08/19/17 13:11 92 22 95 08/19/17 13:06 91 20 94 Room Air 08/19/17 13:01 91 18 128/61 94 08/19/17 12:56 91 12 95 08/19/17 12:51 91 24 94 08/19/17 12:46 90 20 94 08/19/17 12:45 149/70 08/19/17 12:45 93 08/19/17 12:20 84 20 98 Room Air 08/19/17 12:02 96 Room Air Physical Exam General Appearance: WD/WN, no apparent distress, + obese ENT: normal ENT inspection Respiratory/Chest: chest non-tender Cardiovascular: regular rate, rhythm Abdomen: normal bowel sounds Extremities: normal range of motion 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 as tested Laboratory Results Last 24 Hours Test 08/19/17 12:12 08/19/17 16:30 08/19/17 20:00 08/19/17 20:04 White Blood Count 8.10 K/uL Red Blood Count 3.29 M/uL Hemoglobin 6.9 g/dL Hematocrit 24.7 % Mean Corpuscular Volume 75.1 fL Mean Corpuscular Hemoglobin 21.0 pg Mean Corpuscular Hemoglobin Concent 27.9 g/dl Platelet Count 238 K/uL Mean Platelet Volume 9.5 fL Neutrophils (%) (Auto) 74.8 % Lymphocytes (%) (Auto) 15.8 % Monocytes (%) (Auto) 6.8 % Eosinophils (%) (Auto) 2.3 % Basophils (%) (Auto) 0.1 % Neutrophils # (Auto) 6.05 K/uL Lymphocytes # (Auto) 1.28 K/uL Monocytes # (Auto) 0.55 K/uL Eosinophils # (Auto) 0.19 K/uL Basophils # (Auto) 0.01 K/uL RDW Standard Deviation 46.8 fL RDW Coefficient of Variation 16.9 % Immature Granulocyte % (Auto) 0.2 % Immature Granulocyte # (Auto) 0.02 K/uL Hypochromasia PRESENT Poikilocytosis PRESENT Microcytosis PRESENT Absolute Reticulocyte Count 0.08 10^6/uL Percent Reticulocyte Count 2.3 % Prothrombin Time 10.0 SECONDS Prothromb Time International Ratio 1.0 Activated Partial Thromboplast Time 22.6 SECONDS Partial Thromboplastin Ratio 0.9 D-Dimer 1230 ug/L FEU Sodium Level 136 mmol/L Potassium Level 4.4 mmol/L Chloride Level 103 mmol/L Carbon Dioxide Level 29 mmol/L Anion Gap 5.0 mmol/L Blood Urea Nitrogen 21 mg/dl Creatinine 1.29 mg/dl Est Creatinine Clear Calc Drug Dose 69.4 ml/min Estimated GFR () 62.9 Estimated GFR (Non- 54.3 BUN/Creatinine Ratio 16.4 Random Glucose 272 mg/dl Calcium Level 8.2 mg/dl Total Bilirubin 0.4 mg/dl Aspartate Amino Transf (AST/SGOT) 16 U/L Alanine Aminotransferase (ALT/SGPT) 24 U/L Alkaline Phosphatase 98 U/L Total Creatine Kinase 180 U/L Creatine Kinase MB 2.1 ng/ml Creatine Kinase MB Ratio 1.2 Troponin I 0.119 ng/ml 0.117 ng/ml Total Protein 7.0 gm/dl Albumin 3.1 gm/dl Globulin 3.9 gm/dl Albumin/Globulin Ratio 0.8 Bedside Glucose 177 mg/dl 216 mg/dl Iron Level 28 mcg/dl Total Iron Binding Capacity 427 mcg/dl Transferrin 327 mg/dl Transferrin % Saturation 6 % Ferritin 3.5 ng/ml Vitamin B12 Level 381 pg/mL Folate 10.60 ng/mL Thyroid Stimulating Hormone (TSH) 0.077 uIu/ml Test 08/20/17 02:04 08/20/17 07:33 08/20/17 07:57 08/20/17 07:58 Troponin I 0.112 ng/ml 0.134 ng/ml Bedside Glucose 178 mg/dl White Blood Count 9.65 K/uL Red Blood Count 3.80 M/uL Hemoglobin 8.6 g/dL Hematocrit 28.8 % Mean Corpuscular Volume 75.8 fL Mean Corpuscular Hemoglobin 22.6 pg Mean Corpuscular Hemoglobin Concent 29.9 g/dl Platelet Count 247 K/uL Mean Platelet Volume 9.2 fL Neutrophils (%) (Auto) 66.6 % Lymphocytes (%) (Auto) 20.6 % Monocytes (%) (Auto) 9.7 % Eosinophils (%) (Auto) 2.6 % Basophils (%) (Auto) 0.2 % Neutrophils # (Auto) 6.42 K/uL Lymphocytes # (Auto) 1.99 K/uL Monocytes # (Auto) 0.94 K/uL Eosinophils # (Auto) 0.25 K/uL Basophils # (Auto) 0.02 K/uL RDW Standard Deviation 49.0 fL RDW Coefficient of Variation 17.6 % Immature Granulocyte % (Auto) 0.3 % Immature Granulocyte # (Auto) 0.03 K/uL Poikilocytosis PRESENT Sodium Level 136 mmol/L Potassium Level 4.3 mmol/L Chloride Level 103 mmol/L Carbon Dioxide Level 29 mmol/L Anion Gap 5.0 mmol/L Blood Urea Nitrogen 15 mg/dl Creatinine 1.13 mg/dl Est Creatinine Clear Calc Drug Dose 79.0 ml/min Estimated GFR () 73.8 Estimated GFR (Non- 63.7 BUN/Creatinine Ratio 13.2 Random Glucose 187 mg/dl Calcium Level 8.4 mg/dl Magnesium Level 2.2 mg/dl Chemistry Specimen Hemolysis Assessment and Plan 72-year-old gentleman admitted for symptomatic anemia of an unknown etiology. He certainly has evidence of a chronic anemia with a low MCV. He exhibits no signs of GI bleeding. He seems to improve the blood transfusion, with no acute findings, okay for discharge with close follow-up with Dr. Haley both an EGD/ colonoscopy, and if normal, consideration of small bowel findings to workup his anemia. If patient is discharged, then should follow-up Dr. Haley's office within a couple weeks for endoscopies and follow-up closely with Dr. Durham's office.
[2017-08-20] MEDS ORDERED: PANT40TA PO (12:32)
--- NOTE | 2017-08-20 12:45 | Discharge Instructions ---
Discharge Instructions Date of Service August 20, 2017. Admission Reason for Admission: Symptomatic anemia Discharge Discharge Diagnosis / Problem: Symptomatic anemia Discharge Goals Goal(s): Improve disease control, Diagnostic testing, Therapeutic intervention Activity Recommendations Activity Limitations: as noted below Exercise/Sports Limitations: rest today, until after follow-up appointment Shower/Bathe: no limitations Driving or Machine Use: no limitations . Instructions / Follow-Up Instructions / Follow-Up You were admitted due to severe anemia and given a blood transfusion. This is the most likely explanation for your shortness of breath with exertion which did improve with a blood transfusion. It is very important to keep an eye out for obvious bleeding such as black, tarry stools, maroon or bright red blood in the stool, or vomiting of bright red blood or coffee-ground like material. If you have worsening shortness of breath, develop chest pain, or abdominal pain, you should return to the emergency room immediately. You should not take your aspirin until after you have your endoscopies to prevent further bleeding. Otherwise, please call Dr. Haley's office on Tuesday to schedule your EGD and colonoscopy as he requested. Please also follow-up with Dr. Durham's office within 1 week-please call to make this appointment. You should have your blood count checked on lab work again next week. Current Hospital Diet Patient's current hospital diet: Diabetes Type 2 Diet Discharge Diet Recommended Diet: Diabetes Type 2 Diet Procedures Procedures Performed: Chest x-ray CT angiogram of the chest Venous Doppler lower extremities Pending Studies Studies pending at discharge: no Laboratory Results Last 24 Hours Test 08/19/17 16:30 08/19/17 20:00 08/19/17 20:04 08/20/17 02:04 Bedside Glucose 177 mg/dl 216 mg/dl Iron Level 28 mcg/dl Total Iron Binding Capacity 427 mcg/dl Transferrin 327 mg/dl Transferrin % Saturation 6 % Ferritin 3.5 ng/ml Troponin I 0.117 ng/ml 0.112 ng/ml Vitamin B12 Level 381 pg/mL Folate 10.60 ng/mL Thyroid Stimulating Hormone (TSH) 0.077 uIu/ml Test 08/20/17 07:33 08/20/17 07:57 08/20/17 07:58 08/20/17 11:19 Bedside Glucose 178 mg/dl 212 mg/dl Troponin I 0.134 ng/ml White Blood Count 9.65 K/uL Red Blood Count 3.80 M/uL Hemoglobin 8.6 g/dL Hematocrit 28.8 % Mean Corpuscular Volume 75.8 fL Mean Corpuscular Hemoglobin 22.6 pg Mean Corpuscular Hemoglobin Concent 29.9 g/dl Platelet Count 247 K/uL Mean Platelet Volume 9.2 fL Neutrophils (%) (Auto) 66.6 % Lymphocytes (%) (Auto) 20.6 % Monocytes (%) (Auto) 9.7 % Eosinophils (%) (Auto) 2.6 % Basophils (%) (Auto) 0.2 % Neutrophils # (Auto) 6.42 K/uL Lymphocytes # (Auto) 1.99 K/uL Monocytes # (Auto) 0.94 K/uL Eosinophils # (Auto) 0.25 K/uL Basophils # (Auto) 0.02 K/uL RDW Standard Deviation 49.0 fL RDW Coefficient of Variation 17.6 % Immature Granulocyte % (Auto) 0.3 % Immature Granulocyte # (Auto) 0.03 K/uL Poikilocytosis PRESENT Sodium Level 136 mmol/L Potassium Level 4.3 mmol/L Chloride Level 103 mmol/L Carbon Dioxide Level 29 mmol/L Anion Gap 5.0 mmol/L Blood Urea Nitrogen 15 mg/dl Creatinine 1.13 mg/dl Est Creatinine Clear Calc Drug Dose 79.0 ml/min Estimated GFR () 73.8 Estimated GFR (Non- 63.7 BUN/Creatinine Ratio 13.2 Random Glucose 187 mg/dl Calcium Level 8.4 mg/dl Magnesium Level 2.2 mg/dl Chemistry Specimen Hemolysis Medical Emergencies . Who to Call and When: Medical Emergencies: If at any time you feel your situation is an emergency, please call 911 immediately. . Non-Emergent Contact Non-Emergency issues call your: Primary Care Provider, Assisted Living Coordinator Call Non-Emergent contact if: temperature is above 101, your pain is not controlled, your pain is worsening, your pain is unusual for you, your pain is concerning you, you have any medication questions . . "Provider Documentation" section prepared by Larisa Greene. .
--- NOTE | 2017-08-20 13:05 | Discharge Summary ---
Discharge Summary Date of Service August 20, 2017. Discharge Summary Admission Date: August 19, 2017 at 14:07 Discharge Date: August 20, 2017 Discharge Disposition: Home Principal Diagnosis: Symptomatic anemia, GI blood loss anemia Problems/Secondary Diagnoses: Dyspnea on exertion Myocardial demand ischemia Chronic diastolic CHF History of aortic valve replacement CAD status post CABG DM 2, on long-term insulin morbid obesity, BMI 40.1 BPH with history of elevated PSA COPD Immunizations: Have You Had Influenza Vaccine: N/A History of Tetanus Vaccine?: No History of Pneumococcal: No History of Hepatitis B Vaccine: No Procedures: Chest x-ray CTA chest Bilateral lower extremity venous Dopplers Consultations: Gastroenterology Medication Reconciliation New Medications: Pantoprazole Sodium (Protonix) 40 Mg Tab 40 MG PO BID for 14 Days, #28 TAB Continued Medications: Alfuzosin Hcl (Uroxatral) 10 Mg Tab 10 MG PO QPM, TAB Atorvastatin (Lipitor) 80 Mg Tab 80 MG PO DAILY Finasteride (Finasteride) 5 Mg Tab 5 MG PO DAILY Fish Oil ([place]-3) 1 Ea Cap 1 CAP PO PM, 0 Refills Insulin Aspart (Novolog Flexpen) 100 Units/Ml Inj 15 UNITS SQ QDB Insulin Aspart (Novolog Flexpen) 100 Units/Ml Inj 15 UNITS SQ QDL Insulin Aspart (Novolog Flexpen) 100 Units/Ml Inj 25 UNITS SQ QDD Insulin Aspart (Novolog Flexpen) 100 Units/Ml Inj 5 UNITS SQ WITH SNACKS PRN for WITH SNACKS Insulin Glargine (Toujeo Solostar) 300 Unit/Ml Inj 80 UNITS SQ HS Metformin Hcl Er (Glucophage Er) 500 Mg Tab 1000 MG PO BID Repaglinide (Prandin) 1 Mg Tab 1 MG PO AC, TAB Discontinued Medications: Aspirin (Aspirin Ec) 81 Mg Tab 81 MG PO DAILY Referrals At Discharge Follow up Referrals: Mechatronics Technologist Referral - Within 1-2 Weeks with Booker Haley D.O. Discharge Exam Patient still feels a little short of breath with exertion, but is much improved from previous now that he is received a blood transfusion. Initially when I saw him, he was making laps around the entire nurses station without difficulty. He denies any chest pain or pressure, no lightheadedness. His orthostatic vital signs were normal. He denies any black tarry stools or blood in the stool, no vomiting, no abdominal pain. He does have occasional acid reflux. His repeat ECG was reviewed this morning and still shows some nonspecific T-wave changes in the lateral leads, but I feel it is improved from yesterday. His troponin remains mildly elevated but stable 3. Review of Systems: Constitutional: No problem reported Eyes: No problem reported ENT: No unusual epistaxis, No problem reported Respiratory: + dyspnea on exertion Cardiovascular: + edema (Chronic and mild in the legs), No chest pain Abdomen: No pain, No nausea, No vomiting, No diarrhea, No constipation, No GI bleeding (No gross bleeding) Musculoskeletal: + joint pain (Right hip pain since a fall several months ago) Genitourinary - Male: No hematuria, No problem reported Neurologic: No problem reported Psychiatric: No problem reported Endocrine: No problem reported Hematologic / Lymphatic: No problem reported Integumentary: No bleeding, No problem reported Physical Exam: General Appearance: WD/WN, no apparent distress, + obese Eyes: normal inspection, EOMI ENT: hearing grossly normal, pharynx normal Neck: trachea midline Respiratory/Chest: lungs clear, normal breath sounds, no respiratory distress, no accessory muscle use Cardiovascular: regular rate, rhythm, normal peripheral pulses, + systolic murmur (2/6 RUSB), + pertinent finding (Trace pitting edema in the legs to the mid tibia bilaterally) Abdomen / GI: normal bowel sounds, non tender, soft (And obese) Extremities: no calf tenderness Neurologic/Psychiatric: alert, normal mood/affect, oriented x 3 Skin: normal color, warm/dry, no rash Hospital Course This patient is a 72-year-old man with past medical history of CAD status post CABG, aortic valve disease status post tissue valve replacement in 2013, diabetes mellitus type II insulin requiring, morbid obesity, chronic diastolic CHF, and BPH. Presented to the hospital with progressively worsening exertional shortness of breath over the last 6 months now found to be secondary to severe anemia. Exertional shortness of breath/iron deficiency severe anemia/Hemoccult positive stool-PFTs recently as an outpatient showed moderate obstructive disease and mild restrictive disease, echo showed diastolic dysfunction only, chest x-ray with nothing acute. Likely secondary to acute on chronic anemia. Improved AMATO status post blood transfusion No obvious GI bleeding-to have EGD and colonoscopy in the near future as an outpatient CT angiogram of the chest and lower extremity ultrasound both negative in the setting of an elevated d-dimer History of CABG/aortic valve replacement/myocardial demand ischemia/abnormal ECG -ECG with nonspecific T-wave changes in the lateral leads, mildly elevated troponin but stable at 0.13. Recent echocardiogram without wall motion abnormalities at rest. Has a dobutamine stress test ordered as an outpatient, but recommend holding off on this until after workup for severe anemia is completed. Currently will hold aspirin due to severe anemia-continue to hold this upon discharge until after endoscopies -Continue statin -Unclear why he is not on a beta-jonathan -Continue routine follow-up with cardiology as an outpatient Severe anemia, likely acute on chronic. Ferritin is 3.5 which indicates chronic iron deficiency and with Hemoccult positive stool, likely slow GI blood loss. Hemoglobin improved to 8.6 status post 2 units PRBCs B12, folate levels normal Consulted GI appreciated and plan for outpatient endoscopies in the near future given that there is no gross bleeding and that this is likely been ongoing for 6 months -Recommend follow-up CBC within 1 week with PCP COPD-stable -Follow-up as an outpatient Diabetes mellitus type 2, on long-term insulin, uncontrolled-last hemoglobin A1c from 6 months ago is 8.0% Continue insulin dose that patient takes at home Sliding scale insulin -Follow-up as an outpatient Stable for discharge to home with close follow-up Total Time Spent: Greater than 30 minutes This includes examination of the patient, discharge planning, medication reconciliation, and communication with other providers. Discharge Instructions Please refer to the electronic Patient Visit Report (Discharge Instructions) for additional information. Follow-Up With PCP within 1 week With gastroenterology within 1-2 weeks for EGD and colonoscopy Please have repeat CBC within 1 week Additional Copies To Booker Haley D.O.; Daron Durham M.D.
== END 2017-08-20 13:16 | disposition home or self-care (01) | DRG 812 ==
LOC: C.EDB 11:11 → C.2T 14:07 → ENRESERV 14:28
PROVIDERS: ADMIT Internal Medicine; ATTEND Family Medicine
DX: D62 Acute posthemorrhagic anemia (principal); I24.8 Other forms of acute ischemic heart disease; I50.32 Chronic diastolic (congestive) heart failure; Z68.41 Body mass index [BMI] 40.0-44.9, adult; D50.9 Iron deficiency anemia, unspecified; R19.5 Other fecal abnormalities; R79.1 Abnormal coagulation profile; J44.9 Chronic obstructive pulmonary disease, unspecified; E11.9 Type 2 diabetes mellitus without complications; I25.10 Atherosclerotic heart disease of native coronary artery without angina pectoris; N40.0 Benign prostatic hyperplasia without lower urinary tract symptoms; E66.01 Morbid (severe) obesity due to excess calories; Z86.010 Personal history of colon polyps; Z87.19 Personal history of other diseases of the digestive system; Z95.1 Presence of aortocoronary bypass graft; Z95.2 Presence of prosthetic heart valve; Z87.01 Personal history of pneumonia (recurrent); Z87.891 Personal history of nicotine dependence; Z79.4 Long term (current) use of insulin; Z79.82 Long term (current) use of aspirin; Z79.899 Other long term (current) drug therapy

== ENCOUNTER → 2017-10-19 | Outpatient (CLI) | payer BC ==
[~2017-10-19] MED LIST changes: -ASPEC81 PO; +ATOR-26 PO; -FINA5TAB4 PO; -GLC500 PO; +INSU1.2I SQ; -INSUINJ12 SC; +METF500T5 PO; +NVLGI/PEN SQ; +NVLGIPEN SQ; +PRS5 PO; -REPA1TAB26 PO
[2017-10-19 17:32] LABS: HEMATOCRIT 37.1 % (42-52); HEMOGLOBIN 11.1 g/dL (14.0-18.0); MEAN CELL VOLUME 86.5 fL (80-100); MEAN CORPUSCULAR HEMOGLOBIN 25.9 pg (25-34); MEAN CORPUSCULAR HGB CONC 29.9 g/dl (32-36); PLATELET COUNT 220 K/uL (130-400); RED CELL DISTRIBUTION WIDTH CV 25.4 % (11.5-14.5); RED CELL DISTRIBUTION WIDTH SD 76.4 fL (36.4-46.3); WHITE BLOOD COUNT 8.35 K/uL (4.8-10.8)
[2017-10-19 18:08] LABS: BASO % 0.2 %; BASO ABS # 0.02 K/uL (0-0.2); EOS % 1.8 %; EOS ABS # 0.15 K/uL (0-0.5); IG# 0.02 K/uL (0.00-0.02); LYMPH % 20.8 %; LYMPH ABS # 1.74 K/uL (1.2-3.4); MONO % 8.9 %; MONO ABS # 0.74 K/uL (0.11-0.59); NEUT % 68.1 %; NEUT ABS # 5.68 K/uL (1.4-6.5)
== END | disposition home or self-care (01) ==
LOC: C.LABBC 14:10
PROVIDERS: ATTEND Internal Medicine
DX: D50.0 Iron deficiency anemia secondary to blood loss (chronic) (principal)

== ENCOUNTER → 2017-11-02 | Outpatient (CLI) | payer BC ==
--- NOTE | 2017-11-02 16:44 | DIAGNOSTIC IMAGING REPORT ---
ABDOMEN AND PELVIS CT WITH ORAL CONTRAST CT DOSE: 1949.47 mGy.cm HISTORY: D50.0 Anemia due to GI blood loss [id number] TECHNIQUE: Multiaxial CT images of the abdomen and pelvis were performed following the use of oral contrast. A dose lowering technique was utilized adhering to the principles of ALARA. COMPARISON STUDY: Abdomen and pelvis CT 04/08/2009. FINDINGS: Poststernotomy changes. Aortic valve prosthesis. Subsegmental atelectasis within the left lung base. No pneumoperitoneum. No pneumatosis. No suspicious lytic or blastic osseous lesions. Old, healed right-sided rib fractures. Tiny fat-containing bilateral inguinal hernias. A 1.5 cm diverticulum at the second portion of the duodenum. Cholecystectomy. A 7 mm hypodense lesion within the liver anteriorly on image 66. This is incompletely characterize on this noncontrast study. The unenhanced spleen, adrenal glands, and pancreas are unremarkable. Mild bilateral perinephric edema which is likely chronic. A punctate nonobstructing stone within the left kidney. No hydronephrosis. No retroperitoneal lymphadenopathy. Calcified plaque within the normal caliber abdominal aorta. The prostate gland remains mildly enlarged. Normal bladder. However, there is no definite bowel wall thickening or obstruction. Colonic diverticulosis. Normal appendix. IMPRESSION: 1. No bowel wall thickening or obstruction. 2. Colonic diverticulosis. 3. Normal appendix. 4. Left-sided nephrolithiasis. No hydronephrosis. 5. Additional findings as described above. Electronically signed by: Da Collado M.D. 11/02/2017 4:43 PM Dictated Date/Time: 11/02/2017 4:23 PM
== END | disposition home or self-care (01) ==
LOC: C.CTS 13:10
PROVIDERS: ATTEND Internal Medicine
DX: K57.90 Diverticulosis of intestine, part unspecified, without perforation or abscess without bleeding (principal); N20.0 Calculus of kidney; D50.0 Iron deficiency anemia secondary to blood loss (chronic)

== ENCOUNTER → 2017-11-09 | Outpatient (CLI) | payer BC, OTHER ==
[~2017-11-09] MED LIST changes: +ATROPINE SULFATE 0.1 MG/ML 10 ML SYR ONE; +DOBUTamine HCL 12.5 MG/ML 20 ML VIAL ONE; +METOPROLOL TARTRATE 1 MG/ML VIAL ONE; +PERFLUTREN LIPID MICROSPHERE (DEFINITY) IV ONE
--- NOTE | 2017-11-09 12:24 | DOBUTAMINE ECHO ---
*NOTICE TO RECEIVING LIBERTARIAN AGENCY This information is strictly Confidential and protected under [place] law. [place] law prohibits you from making any further disclosure of this information unless further disclosure is expressly permitted by the written consent of the person to whom it pertains or is authorized by law. A general authorization for the release of medical or other information is not sufficient for this purpose. Hospital accepts no responsibility if the information is made available to any other person, INCLUDING THE PATIENT. Interpretation Summary * Name: NISHA BAXTER Study Date: 11/09/2017 09:42 AM BP: 128/78 mmHg * Patient Location: [facility] HR: 82 * : 1945 (M/d/yyyy) Gender: Male Height: 71 in * Age: 72 yrs Ethnicity: CA Weight: 294 lb * Ordering Physician: Daron Durham * Referring Physician: Daron Durham * Performed By: Shawna Liu RDCS * * Reason For Study: CAD, DYSPNEA * BSA: 2.5 m2 * -- Conclusions -- * There is mild asymmetric left ventricular hypertrophy. * Left ventricular systolic function is normal. * Grade I diastolic dysfunction, (abnormal relaxation pattern). * The right ventricular systolic function is mildly reduced. * The left atrium is severely dilated. * Aortic valve sclerosis mild, without significant aortic valvular stenosis. * Right ventricular systolic pressure is elevated at 30-40mmHg. * Normal dobutamine echocardiogram without evidence of inducible ischemia Procedure Details * DOBUTAMINE ECHO, CPT#[id number] * ECHO DOPPLER, CPT #[id number] * ECHO COLOR FLOW, CPT #[id number] * The study was technically difficult with many images being suboptimal in quality. * A contrast injection of Definity was performed to improve assessment of LV function. * Contrast was injected into an intravenous site in the left arm. * One vial of Definity ultrasound contrast was diluted in normal saline to a total volume of 10 ml. A total of '5' ml of solution was administered during imaging. * Lot # [id number] of Definity utilized for procedure. * Expiration date 10/13. * The attending nurse who injected the contrast agent was OLIVIER MCGEE RN. Left Ventricular Findings with Stress * Normal dobutamine echocardiogram without evidence of inducible ischemia Left Ventricle * The left ventricle is normal in size. * There is mild asymmetric left ventricular hypertrophy. * Ejection Fraction = 65-70%. * Left ventricular systolic function is normal. * Grade I diastolic dysfunction, (abnormal relaxation pattern). * The left ventricular wall motion is normal at rest. Right Ventricle * The right ventricle is not well visualized. * The right ventricular systolic function is mildly reduced. Atria * The left atrium is severely dilated. * Right atrium not well visualized. Mitral Valve * The mitral valve is grossly normal. * Significant mitral regurgitation is absent. Tricuspid Valve * The tricuspid valve is not well visualized, but is grossly normal. * There is mild tricuspid regurgitation. * Right ventricular systolic pressure is elevated at 30-40mmHg. Aortic Valve * Aortic valve sclerosis mild, without significant aortic valvular stenosis. * No hemodynamically significant valvular aortic stenosis. * There is no significant aortic regurgitation. Pericardium * There is no pericardial effusion. Stress Parameters * Normal baseline electrocardiogram. * Stress ECG: No ST changes. No arrhythmias. * The stress portion of this study was personally supervised by the undersigned interpreting physician. * Rest heart rate was '82' BPM. * Rest blood pressure was '128/78' * Maximum heart rate achieved was 127 bpm. * Maximum heart rate was 86 % of maximum age-predicted heart rate. * Maximum blood pressure was '180/68' * Total exercise time was '12:00' * Maximum Dobutamine infusion rate was '50' mcg/kg/min. * Dobutamine infusion was terminated due to achieving target heart rate * A total of 5 mg of IV Metoprolol was administered to reverse Dobutamine-induced tachycardia. * The patient did not exhibit any symptoms during drug infusion. * Normal blood pressure response to exercise. * Target heart rate achieved. Left Ventricular Findings with Stress * Baseline EKG was normal There are no significant ST or T-wave changes during dobutamine infusion Baseline wall motion and ejection fraction was normal There was normal augmentation of all segments without development of regional wall motion abnormalities at peak dobutamine infusion No symptoms reported MMode 2D Measurements and Calculations IVSd 2.1 cm IVSs 2.2 cm LVIDd 4.3 cm LVIDs 2.7 cm LVPWd 1.1 cm LVPWs 2.3 cm IVS/LVPW 2.0 FS 37.9 % EDV(Teich) 84.2 ml ESV(Teich) 26.7 ml EF(Teich) 68.3 % EDV(cubed) 80.9 ml ESV(cubed) 19.4 ml EF(cubed) 76.0 % % IVS thick 6.4 % % LVPW thick 113.7 % LV mass(C)d 279.4 grams LV mass(C)dI 112.5 grams/m\S\2 LV mass(C)s 290.6 grams LV mass(C)sI 117.0 grams/m\S\2 SV(Teich) 57.5 ml SI(Teich) 23.2 ml/m\S\2 SV(cubed) 61.5 ml SI(cubed) 24.8 ml/m\S\2 LA dimension 5.4 cm asc Aorta Diam 3.4 cm LVOT diam 1.7 cm LVOT area 2.2 cm\S\2 LVAd ap4 31.8 cm\S\2 LVLd ap4 8.4 cm EDV(MOD-sp4) 96.5 ml EDV(sp4-el) 101.6 ml LVAs ap4 15.8 cm\S\2 LVLs ap4 7.1 cm ESV(MOD-sp4) 29.0 ml ESV(sp4-el) 29.8 ml EF(MOD-sp4) 70.0 % EF(sp4-el) 70.7 % LVAd ap2 38.8 cm\S\2 LVLd ap2 9.3 cm EDV(MOD-sp2) 133.6 ml EDV(sp2-el) 137.4 ml LVAs ap2 18.4 cm\S\2 LVLs ap2 7.7 cm ESV(MOD-sp2) 36.9 ml ESV(sp2-el) 37.4 ml EF(MOD-sp2) 72.4 % EF(sp2-el) 72.8 % LVLd %diff 9.3 % EDV(MOD-bp) 115.8 ml LVLs %diff 7.8 % ESV(MOD-bp) 33.8 ml EF(MOD-bp) 70.8 % SV(MOD-sp4) 67.5 ml SI(MOD-sp4) 27.2 ml/m\S\2 SV(MOD-sp2) 96.8 ml SI(MOD-sp2) 38.9 ml/m\S\2 SV(MOD-bp) 82.0 ml SI(MOD-bp) 33.0 ml/m\S\2 SV(sp4-el) 71.9 ml SI(sp4-el) 28.9 ml/m\S\2 SV(sp2-el) 100.0 ml SI(sp2-el) 40.3 ml/m\S\2 Doppler Measurements and Calculations MV E max westley 94.1 cm/sec MV A max westley 86.7 cm/sec MV E/A 1.1 MV dec time 0.19 sec Ao V2 max 121.7 cm/sec Ao max PG 5.9 mmHg Ao max PG (full) 3.0 mmHg KARMA(V,A) 1.5 cm\S\2 KARMA(V,D) 1.5 cm\S\2 LV V1 max PG 2.9 mmHg LV V1 max 85.8 cm/sec PA V2 max 88.4 cm/sec PA max PG 3.1 mmHg TR max westley 270.9 cm/sec
== END | disposition home or self-care (01) ==
LOC: C.CPL 09:45
PROVIDERS: ATTEND Internal Medicine
DX: I25.10 Atherosclerotic heart disease of native coronary artery without angina pectoris (principal); R06.09 Other forms of dyspnea; I50.30 Unspecified diastolic (congestive) heart failure; I51.7 Cardiomegaly; R03.0 Elevated blood-pressure reading, without diagnosis of hypertension